=== PATIENT | female | born 1945 | race Caucasian/White ===

== ENCOUNTER 2016-12-15 23:58 | Inpatient (IN) | payer OTHER ==
[~2016-12-15] VITALS: Ht 157.5 cm; Wt 68.8 kg
[~2016-12-15 23:58] MED LIST: ACYC-251 PO; AMLO2.5T PO; CALCTAB7 PO; CHOL100027 PO; DSWCR15 TOP; FISHOIL PO; LORA-741 PO; MULTTAB PO
[2016-12-16] VITALS (11 sets, daily range): BP systolic 138–189; BP diastolic 70–96; PULSE 73–80; TEMP 36.8–37.4; O2SAT 92–98; Ht 157.5 cm; Wt 68.8 kg
[2016-12-16] MEDS ORDERED: AMLO-110 PO (00:43)
[2016-12-16] MEDS ORDERED: IBUP600T44 PO (00:45)
[2016-12-16] MEDS ORDERED: ATOR10TA88 PO (00:47)
[2016-12-16] MEDS ORDERED: COEN1CAP28 PO (00:49)
[2016-12-16] MEDS ORDERED: DEXT30TA7 PO (00:53)
[2016-12-16] MEDS ORDERED: RBTUDL5 PO (00:55)
[2016-12-16] MEDS ORDERED: CLR10 PO (00:58)
[2016-12-16 01:34] LABS: BASO % 0.4 %; BASO ABS # 0.03 K/uL (0-0.2); COMPLETE YES; EOS % 7.8 %; HEMATOCRIT 44.2 % (37-47); IG% 0.3 %; LYMPH % 24.8 %; LYMPH ABS # 1.74 K/uL (1.2-3.4); MEAN CELL VOLUME 89.7 fL (80-100); MEAN CORPUSCULAR HEMOGLOBIN 30.8 pg (25-34); MEAN CORPUSCULAR HGB CONC 34.4 g/dl (32-36); MEAN PLATELET VOLUME 9.5 fL (7.4-10.4); MONO % 12.3 %; NEUT % 54.4 %; PLATELET COUNT 178 K/uL (130-400); RED BLOOD COUNT 4.93 M/uL (4.2-5.4); WHITE BLOOD COUNT 7.02 K/uL (4.8-10.8)
--- NOTE | 2016-12-16 01:40 | EMERGENCY ROOM VISIT NOTE ---
History Report prepared by Mert: Tiffanie Hernandez Under the Supervision of: Dr. Deann Burt D.O. First contact with patient: 00:51 Chief Complaint: OTHER COMPLAINT Stated Complaint: NUMBNESS IN HANDS AND FACE History of Present Illness The patient is a 71 year old female who presents to the Emergency Room with complaints of constant numbness to the left side of her face into her hands for the past 9 hours. The patient has been experiencing flu-like symptoms for the past week. Two days ago she started taking Mucinex DM, Aleve, and Robitussin DM for her symptoms. She has been taking these medications daily for the past 2 days and states that they have been helping her cough. This evening around 4: 30pm she started to experience some numbness in her hands, left greater than right. She is also experiencing numbness in her lips and on the left side of her face. She states that her feet have felt heavy and she has felt off balance. The patient has chronic neck pain that is worse today. She denies feeling confused. She denies abdominal pain. She did get a flu shot. She reports a cough and a low-grade fever. 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 A total of 10 systems reviewed and were otherwise negative. Past Medical & Surgical Medical Problems: (1) Chronic kidney disease, stage 3 (moderate) (2) Hypertension Family History Non-pertinent due to advanced age. Social History Smoking Status: Never Smoker Alcohol Use: none Drug Use: none Marital Status: Housing Status: lives alone Occupation Status: retired Current/Historical Medications Scheduled Amlodipine (Norvasc), 5 MG PO DAILY Atorvastatin (Lipitor), 10 MG PO DAILY Calcium Carbonate-Vitamin D W/ (Caltrate 600 Plus), 1 TAB PO DAILY Cholecalciferol (Vitamin D 1000 Unit), 1,000 INTER.UNIT PO DAILY Coenzyme Q10 (Ubidecarenone) (Co Q10), 100 MG PO DAILY Fish Oil ([place]-3), 1,200 MG PO DAILY Multivitamins/Minerals (Mvi With Minerals), 1 TAB PO DAILY Scheduled PRN Dextromethorphan-Guaifenesin (Mucinex Dm), 1 TAB PO Q12 PRN for CONGESTION Guaifenesin (Robitussin), 20 ML PO Q12 PRN for Cough Ibuprofen (Motrin), 600 MG PO Q6H PRN for Pain Loratadine (Claritin), 10 MG PO DAILY PRN for ALLERGIC REACTION Lorazepam (Ativan), 0.5-1 MG PO QID PRN for Anxiety Allergies Coded Allergies: Erythromycin (Verified Adverse Reaction, Mild, GI UPSET, 03/31/14) Physical Exam Vital Signs Date Time Temp Pulse Resp B/P Pulse Ox O2 Delivery O2 Flow Rate FiO2 12/16/16 03:46 76 20 158/84 98 Room Air 12/16/16 02:01 68 18 175/89 95 Room Air 12/16/16 00:09 36.7 85 18 136/81 94 Room Air Physical Exam General: The patient is a 71-year-old female. HEENT: Head - normocephalic and atraumatic. Pupils are equal, round, and reactive to light. Extraocular eye muscles are intact and sclera are anicteric. Ears - bilaterally patent canals with noninjected tympanic membranes and no evidence of hemotympanum. Nose - moist nasal mucosa without discharge. Mouth - moist buccal mucosa. Oropharynx is nonerythematous and there is no tonsillar exudate or edema noted. Neck: Supple; no JVD, nuchal rigidity, cervical lymphadenopathy, or auscultated bruits. Heart: Regular rate and rhythm. There is a normal S1 and S2 with no murmurs, clicks, or gallops appreciated. Lungs: Clear to auscultation bilaterally with no wheezes, rales, or rhonchi. Abdomen: Soft, completely nontender, nondistended, with good bowel sounds. There are no palpable pulsatile masses or hepatosplenomegaly. There is no guarding, rigidity, or rebound noted. Extremities: No evidence of cyanosis, clubbing, or edema. There are easily palpable peripheral pulses. Neuro:The patient is awake and alert, oriented to day, time, and place. Muscle strength is 5/5 in all 4 extremities. The patient has equal director of social work strength and equal pedal push and pull. There are no cerebellar signs. Decreased sensation in the left cheek. Medical Decision & Procedures ER Provider Diagnostic Interpretation: 2-view chest x-ray as interpreted by myself reveals no acute pulmonary infiltrates or consolidation, no cardiomegaly. Radiology results as stated below per my review and the radiologist's interpretation: CT HEAD: Prior 05/26/2012 No evidence of acute intracranial abnormality. Mild volume loss and small vessel disease Partially visualized paranasal sinuses and mastoids are clear CT C SPINE: No evidence acute fracture or malalignment. Multilevel degenerative change. Disc osteophyte complexes from C3 to the C6. Moderate central canal stenoses at these levels. At C5-C6, severe right foraminal stenosis. Varying levels of mild to moderate foraminal stenoses at other levels. Heterogenous thyroid with irregular low-density areas. Likely similar to prior thyroid ultrasound 08/14/2012. Radiologist: Giovanni Birscoe MD. Laboratory Results 12/16/16 01:21 Red Blood Count 4.93, Mean Corpuscular Volume 89.7, Mean Corpuscular Hemoglobin 30.8, Mean Corpuscular Hemoglobin Concent 34.4, Mean Platelet Volume 9.5, Neutrophils (%) (Auto) 54.4, Lymphocytes (%) (Auto) 24.8, Monocytes (%) (Auto) 12.3, Eosinophils (%) (Auto) 7.8, Basophils (%) (Auto) 0.4, Neutrophils # (Auto ) 3.82, Lymphocytes # (Auto) 1.74, Monocytes # (Auto) 0.86, Eosinophils # (Auto ) 0.55, Basophils # (Auto) 0.03 12/16/16 01:21 Test 12/16/16 00:00 12/16/16 01:21 12/16/16 03:10 Influenza Type A Antigen Neg for Influ A (NEG) Influenza Type B Antigen Neg for Influ B (NEG) White Blood Count 7.02 K/uL (4.8-10.8) Red Blood Count 4.93 M/uL (4.2-5.4) Hemoglobin 15.2 g/dL (12.0-16.0) Hematocrit 44.2 % (37-47) Mean Corpuscular Volume 89.7 fL (80-100) Mean Corpuscular Hemoglobin 30.8 pg (25-34) Mean Corpuscular Hemoglobin Concent 34.4 g/dl (32-36) Platelet Count 178 K/uL (130-400) Mean Platelet Volume 9.5 fL (7.4-10.4) Neutrophils (%) (Auto) 54.4 % Lymphocytes (%) (Auto) 24.8 % Monocytes (%) (Auto) 12.3 % Eosinophils (%) (Auto) 7.8 % Basophils (%) (Auto) 0.4 % Neutrophils # (Auto) 3.82 K/uL (1.4-6.5) Lymphocytes # (Auto) 1.74 K/uL (1.2-3.4) Monocytes # (Auto) 0.86 K/uL (0.11-0.59) Eosinophils # (Auto) 0.55 K/uL (0-0.5) Basophils # (Auto) 0.03 K/uL (0-0.2) RDW Standard Deviation 44.7 fL (36.4-46.3) RDW Coefficient of Variation 13.8 % (11.5-14.5) Immature Granulocyte % (Auto) 0.3 % Immature Granulocyte # (Auto) 0.02 K/uL (0.00-0.02) Prothrombin Time 10.5 SECONDS (9.0-12.0) Prothromb Time International Ratio 1.0 (0.9-1.1) Anion Gap 11.0 mmol/L (3-11) Est Creatinine Clear Calc Drug Dose 32.9 ml/min Estimated GFR () 43.1 Estimated GFR (Non- 37.2 BUN/Creatinine Ratio 17.9 (10-20) Calcium Level 8.6 mg/dl (8.5-10.1) Magnesium Level 2.2 mg/dl (1.8-2.4) Total Bilirubin 0.5 mg/dl (0.2-1) Aspartate Amino Transf (AST/SGOT) 20 U/L (15-37) Alanine Aminotransferase (ALT/SGPT) 35 U/L (12-78) Alkaline Phosphatase 95 U/L (45-117) Total Protein 7.2 gm/dl (6.4-8.2) Albumin 4.0 gm/dl (3.4-5.0) Globulin 3.2 gm/dl (2.5-4.0) Albumin/Globulin Ratio 1.3 (0.9-2) Thyroid Stimulating Hormone (TSH) 4.510 uIu/ml (0.300-4.500) Free Thyroxine 1.07 ng/dl (0.80-1.60) Urine Color YELLOW Urine Appearance CLEAR (CLEAR) Urine pH 7.0 (4.5-7.5) Urine Specific [place] 1.007 (1.000-1.030) Urine Protein NEG (NEG) Urine Glucose (UA) NEG (NEG) Urine Ketones NEG (NEG) Urine Occult Blood NEG (NEG) Urine Nitrite NEG (NEG) Urine Bilirubin NEG (NEG) Urine Urobilinogen NEG (NEG) Urine Leukocyte Esterase TRACE (NEG) Urine WBC (Auto) 1-5 /hpf (0-5) Urine RBC (Auto) 0-4 /hpf (0-4) Urine Hyaline Casts (Auto) 0 /lpf (0-5) Urine Epithelial Cells (Auto) 10-20 /lpf (0-5) Urine Bacteria (Auto) NEG (NEG) Laboratory results per my review. Medications Administered Medications (Trade) Dose Ordered Sig/Rohan Route Start Time Stop Time Status Last Admin Dose Admin Sodium Chloride (Nss 500ml) 500 ml @ 999 mls/hr Q31M STAT IV 12/16/16 01:59 12/16/16 02:29 DC 12/16/16 01:59 999 MLS/HR Procedure Medications Administered: NSS 500 ml @ 999 mls/hr IV ECG Indication: other (stroke-like sx) Rate (beats per minute): 67 Rhythm: normal sinus Findings: no acute ischemic change, no ectopy ED Course 0051: Past medical records reviewed. The patient was evaluated in room B4B. A complete history and physical exam was performed. A twelve-lead EKG was obtained. An IV lock was initiated and labs were drawn as above. The patient went for a CT scan of the brain and cervical spine as described above. 0159: Laboratory studies revealed some mild renal insufficiency and I ordered NSS 500 ml @ 999 mls/hr IV. She had a chest x-ray because of her persisting cough. This was normal. 0350: I reassessed the patient at this time. She is complaining of more defined numbness on the left side of her face. She still has numbness in her hands. I discussed the results and treatment plan with the patient. I answered all pertaining questions that she had. She expressed understanding and verbalized agreement. 0408: I spoke with Dr. Barron. We discussed the patient's results and treatment plan. The patient will be evaluated by the [facility] for further management. Medical Decision The patient is a 71 year old female who presents to the ED with numbness. Differential diagnosis includes influenza, pneumonia, stroke, medication overdose, bronchitis, cervical spinal stenosis. Flu swab was negative, no leukocytosis, stable H&H, BUN 25, creatinine 1.4 which is elevated from her baseline of 1.2, glucose 109, TSH 4.5, LFTs were normal. This is 71-year-old female patient who presents to the emergency department with some questionable strokelike symptoms. The patient's symptoms started approximately 8 or 9 hours ago when she noticed that her feet seemed kind of full and that she had some numbness in both hands. She then noted some numbness to the left side of her face. The patient was not overly concerned about the numbness in her hands because she has had multiple previous episodes similar to this but the numbness to the left side of her face was concerning. The patient suffered a fall 1.5 years ago where she believe she may have injured her neck but had no formal workup at that time. She believed that the intermittent episodes of numbness in the hands could've been secondary to that injury. CT scan of the neck did show significant arthritic and osteophyte formation. The patient also describes a 3 day history of taking both Mucinex DM and Robitussin-DM. There was some thought that her symptoms may be secondary to medication side effects. However, the patient's symptoms were persistent for more than 8 hours and she had more defined numbness to the left side of her face while here in the ER. For this reason, the patient will will need a complete stroke workup including MRI/MRA of the brain and carotid duplex. I discussed the case with the [facility] and they will evaluate for further management. Consults Time Called: [phone] Consulting Physician: Dr. Barron Returned Call: [phone] Barron. We discussed the patient's results and treatment plan. The patient will be evaluated by the [facility] for further management. Impression Primary Impression: Left facial numbness Additional Impression: Bilateral hand numbness Scribe Attestation The scribe's documentation has been prepared under my direction and personally reviewed by me in its entirety. I confirm that the note above accurately reflects all work, treatment, procedures, and medical decision making performed by me. Departure Information Dispostion Being Evaluated By Hospitalist Referrals No Doctor, Assigned (PCP) Patient Instructions My [facility] Problem Qualifiers
[2016-12-16 01:57] LABS: BUN/CREATININE RATIO 17.9 (10-20); CALCIUM 8.6 mg/dl (8.5-10.1); CREATININE 1.4 mg/dl (0.60-1.20); POTASSIUM 3.8 mmol/L (3.5-5.1)
[2016-12-16] MEDS ORDERED: SODIUM CHLORIDE 0.9% 500ML 500 ML IV STA (01:59)
[2016-12-16 02:07] LABS: ALB/GLOB RATIO 1.3 (0.9-2); THYROID STIMULATING HORMONE 4.51 uIu/ml (0.300-4.500)
[2016-12-16 03:28] LABS: URINE APPEARANCE CLEAR (CLEAR); URINE BILIRUBIN NEG (NEG); URINE COLOR YELLOW; URINE NITRITE NEG (NEG); URINE SPECIFIC GRAVITY 1.007 (1.000-1.030); UROBILINOGEN NEG (NEG)
[2016-12-16 03:32] LABS: MANUAL MICROSCOPIC REQUIRED? NO; REVIEW REQ? NO
[2016-12-16 04:21] LABS: MAGNESIUM 2.2 mg/dl (1.8-2.4)
[2016-12-16] MEDS ORDERED: ASPIRIN 324 MG CHEW PO STA (05:44)
[2016-12-16] MEDS ORDERED: ASPIRIN 324 MG CHEW ONE (05:52)
[2016-12-16] MEDS ORDERED: ALBUT/IPRATROP 3MG/0.5MG NEB 3 ML VIAL INH STA (05:57)
[2016-12-16] MEDS ORDERED: TRAMADOL HCL 50 MG TAB PO PRN (06:00)
[2016-12-16] MEDS ORDERED: LORATADINE 10 MG TAB PO PRN (06:00)
[2016-12-16] MEDS ORDERED: HYDROmorphone INJ 1 MG/ML SYR IV PRN (06:00)
[2016-12-16] MEDS ORDERED: NITROGLYCERIN 0.4 MG SL PER TAB CHARGE SL PRN (06:00)
[2016-12-16] MEDS ORDERED: PHARMACIST DISCHARGE MED REC CONSULT PRN (06:00)
[2016-12-16] MEDS ORDERED: IV FLUIDS COMPLETED PRN (06:00)
[2016-12-16] MEDS ORDERED: ACETAMINOPHEN 325 MG TAB PO PRN (06:00)
[2016-12-16] MEDS ORDERED: LORAZEPAM 0.5 MG TAB PO PRN (06:00)
[2016-12-16] MEDS ORDERED: ALBUT/IPRATROP 3MG/0.5MG NEB 3 ML VIAL INH PRN (06:00)
[2016-12-16] MEDS ORDERED: ONDANSETRON INJ 2 MG/ML 2 ML VIAL IV PRN (06:00)
--- NOTE | 2016-12-16 06:30 | DIAGNOSTIC IMAGING REPORT ---
HEAD CT NONCONTRAST CT DOSE: 1007.39 mGy.cm HISTORY: Mental status change left facial numbness TECHNIQUE: Multiaxial CT images of the head were performed without the use of intravenous contrast. Comparison: 05/26/2012 Findings: The paranasal sinuses and mastoid air cells are clear. The calvarium and skull base are intact. The ventricles and sulci are within normal limits. There is no mass, hematoma, midline shift, or acute infarct. Impression: No acute intracranial abnormality. Electronically signed by: Mark Wu M.D. 12/16/2016 6:29 AM Dictated Date/Time: 12/16/2016 6:28 AM
--- NOTE | 2016-12-16 06:31 | DIAGNOSTIC IMAGING REPORT ---
CERVICAL SPINE CT CT DOSE: HISTORY: Pain. Neuropathy. bilateral arm numbness TECHNIQUE: Multiaxial CT images of the cervical spine were performed and reformatted in the sagittal and coronal plane without the use of contrast. COMPARISON: None. FINDINGS: No acute bony abnormality. Considerable degenerative intervertebral disc change at the entire cervical region. No evidence for an acute compression deformity. Moderate anterior and posterior osteophytic changes throughout. Moderate osteophytic narrowing of the bulk of the neuroforamina bilaterally. Prevertebral soft tissues are unremarkable. IMPRESSION: Considerable degenerative change. No acute abnormality. Electronically signed by: Mark Wu M.D. 12/16/2016 6:30 AM Dictated Date/Time: 12/16/2016 6:29 AM
--- NOTE | 2016-12-16 07:09 | DIAGNOSTIC IMAGING REPORT ---
CHEST 2 VIEWS ROUTINE CLINICAL HISTORY: cough dyspnea COMPARISON STUDY: No previous studies for comparison. FINDINGS: The bones soft tissues and hemidiaphragms are normal. The cardiomediastinal silhouette is normal. The lungs are clear. The pulmonary vasculature is normal. IMPRESSION: Negative chest. Electronically signed by: Mark Wu M.D. 12/16/2016 7:08 AM Dictated Date/Time: 12/16/2016 7:08 AM
--- NOTE | 2016-12-16 08:20 | HISTORY & PHYSICAL EXAMINATION ---
DATE OF ADMISSION: 12/16/2016 PRIMARY CARE PHYSICIAN: Dr. Rodriguez. CHIEF COMPLAINT: Numbness on the left side of the face around the mouth, worsening numbness of the upper extremities. HISTORY OF PRESENT ILLNESS: Medical history significant for hypertension, hyperlipidemia, anxiety. Patient suffering from nasal congestion, dry cough symptoms the last few days. No fever, no chills. Taking [id number] decongestants/cough meds. Yesterday the patient noted increased numbness on the left side of the face and around the mouth, worsening of chronic numbness on both hands, had trouble writing. (Patient is left handed.) No chest pain, usual shortness of breath "because I don't exercise." No fevers, no headaches. MEDICAL HISTORY: As above. SURGERIES: Cataract surgery, tonsillectomy, adenectomy. HOME MEDICATIONS: Include amlodipine, Lipitor, Caltrate, vitamin D, Colace, Mucinex, omega, Robitussin, ibuprofen, Ativan, Claritin, multivitamins. ALLERGIES: ERYTHROMYCIN. FAMILY HISTORY: Stroke, emphysema. PERSONAL AND SOCIAL HISTORY: Nonsmoker, no chronic ETOH intake. Retired secretary administrative assistant. Lives alone. REVIEW OF SYSTEMS: As per HPI, all other ROS negative. PHYSICAL EXAMINATION: VITAL SIGNS: Blood pressure was noted to be 136/81 later SBP 170s, pulse rate 68, respiratory rate 18, T 37, O2 sats 94 on room air. GENERAL: Noted to becomfortable, slightly anxious, no respiratory distress. SKIN: Normal color. HEENT: [place] palpebral conjunctivae, dry mucosa. NECK: No JVD. supple CHEST: Clear to auscultation. HEART: Regular rate and rhythm. ABDOMEN: Soft. EXTREMITIES: no edema, no tenderness noted. NEUROLOGIC: no gross focality, gait and stance not assessed. LABORATORIES: Hemoglobin was noted to be 15, white cell count 7, platelets 178. Sodium 140, potassium 3.8, chloride 107, creatinine 1.4, glucose 100. CT head, no acute pathology. CT neck, worsening of some neck pain. Consider degenerative change. Chest x-ray showed no acute pathology. ASSESSMENT: 1. Numbness on the left face, mouth and upper extremities ro CVA 2. Hypertensive urgency secondary to above. 3. Hyperlipidemia on statin therapy. 4. Acute renal failure. 5. viral URTI, no sepsis PLAN: Observation PCU, neuro checks ASA for now for stroke prevention until stroke ruled out. Further mx pending MRI/MRA results. Permissive hypertension until stroke ruled out. Px requesting for [facility] Neurology services should the need arise Monitor creatinine response to IV fluids. DVT prophylaxis. Heparin subQ. Full code. MTDD
[2016-12-16 08:26] LABS: PROTHROMBIN TIME (PATIENT) 10.5 SECONDS (9.0-12.0)
[2016-12-16] MEDS ORDERED: SODIUM CHLOR 0.45% + 20MEQ KCL 1,000 ML IV ONE (08:30)
[2016-12-16] MEDS ORDERED: CEROVITE ADV FORMULA TAB PO SCH (09:00)
[2016-12-16] MEDS ORDERED: ATORVASTATIN 10 MG TAB PO SCH (09:00)
[2016-12-16] MEDS: GUAIFENESIN 600 MG TABCR PO SCH ×2 (10:06→21:41)
--- NOTE | 2016-12-16 11:41 | DIAGNOSTIC IMAGING REPORT ---
Brain MRI WITHOUT CONTRAST HISTORY: Facial numbness Stroke TECHNIQUE: Multiplanar multisequence MRI of the brain was performed without the use of contrast. COMPARISON STUDY: CT study same date FINDINGS: Small acute infarct lateral aspect right thalamus. Signal characteristics of the cerebellar as well as cerebral hemispheres otherwise are unremarkable. The ventricular system is midline. Minimal chronic small vessel change. IMPRESSION: 1. Small acute/subacute infarct lateral right thalamus. 2. Minimal chronic small vessel change. Electronically signed by: Mark Wu M.D. 12/16/2016 11:40 AM Dictated Date/Time: 12/16/2016 11:38 AM
--- NOTE | 2016-12-16 11:54 | DIAGNOSTIC IMAGING REPORT ---
Brain MRA HISTORY: Stroke Stroke - Attention to [place] TECHNIQUE: 3-D [id number] MRA of the brain was performed without contrast. COMPARISON STUDY: None. FINDINGS: Visualized intracranial internal carotid arteries, distal vertebral arteries, and basilar artery are widely patent. There is no significant stenosis, occlusion, or aneurysm seen within the bilateral ACAs, MCAs, or drop hammer setter up. IMPRESSION: No significant stenosis, occlusion, or aneurysm within the [place]. Electronically signed by: Mark Wu M.D. 12/16/2016 11:52 AM Dictated Date/Time: 12/16/2016 11:51 AM
[2016-12-16] MEDS ORDERED: CLOPIDOGREL BISULFATE 75 MG TAB PO ONE (12:02)
--- NOTE | 2016-12-16 13:04 | Progress Note ---
Medicine Progress Note Date & Time of Visit: Dec 16, 2016 at 12:33. Subjective Pt was seen and examined Sitting in bed comfortable just finished eating lunch while i was taking to her daughter and son just entered her room Pt said she feels ok except for the coughing that she has she still feels some numbness around the left facial area and upper extremities she said that she feels a little dizzy Denies any slurred speech, blurry vision, palpitation and SOB Objective Last 8 Hrs Date Time Temp Pulse Resp B/P Pulse Ox O2 Delivery O2 Flow Rate FiO2 12/16/16 12:00 95 Room Air 12/16/16 08:30 80 18 169/74 94 Room Air 12/16/16 08:00 98 Room Air 12/16/16 07:00 98 Room Air 12/16/16 06:56 36.8 76 18 189/96 12/16/16 05:55 69 20 179/86 98 Room Air Physical Exam: General- no acute distress Head- atraumatic Eyes- PERRL, EOMI ENT- oropharynx clear Neck- supple, no JVD Lungs- No crackles Heart- no murmur Abdomen- normal bowel sounds, soft Extremities- no calf tenderness Neuro- alert, oriented x 3; PERRL, EOMI; no facial palsy; no dysarthria; motor 5 /5 bilaterally, finger to nose intact bilaterally Skin- warm & dry Laboratory Results: Last 24 Hours Test 12/16/16 00:00 12/16/16 01:21 12/16/16 03:10 12/16/16 12:19 Influenza Type A Antigen Neg for Influ A Influenza Type B Antigen Neg for Influ B White Blood Count 7.02 K/uL Red Blood Count 4.93 M/uL Hemoglobin 15.2 g/dL Hematocrit 44.2 % Mean Corpuscular Volume 89.7 fL Mean Corpuscular Hemoglobin 30.8 pg Mean Corpuscular Hemoglobin Concent 34.4 g/dl Platelet Count 178 K/uL Mean Platelet Volume 9.5 fL Neutrophils (%) (Auto) 54.4 % Lymphocytes (%) (Auto) 24.8 % Monocytes (%) (Auto) 12.3 % Eosinophils (%) (Auto) 7.8 % Basophils (%) (Auto) 0.4 % Neutrophils # (Auto) 3.82 K/uL Lymphocytes # (Auto) 1.74 K/uL Monocytes # (Auto) 0.86 K/uL Eosinophils # (Auto) 0.55 K/uL Basophils # (Auto) 0.03 K/uL RDW Standard Deviation 44.7 fL RDW Coefficient of Variation 13.8 % Immature Granulocyte % (Auto) 0.3 % Immature Granulocyte # (Auto) 0.02 K/uL Prothrombin Time 10.5 SECONDS Prothromb Time International Ratio 1.0 Sodium Level 143 mmol/L Potassium Level 3.8 mmol/L Chloride Level 107 mmol/L Carbon Dioxide Level 25 mmol/L Anion Gap 11.0 mmol/L Blood Urea Nitrogen 25 mg/dl Creatinine 1.40 mg/dl Est Creatinine Clear Calc Drug Dose 32.9 ml/min Estimated GFR () 43.1 Estimated GFR (Non- 37.2 BUN/Creatinine Ratio 17.9 Random Glucose 109 mg/dl Calcium Level 8.6 mg/dl Magnesium Level 2.2 mg/dl Total Bilirubin 0.5 mg/dl Aspartate Amino Transf (AST/SGOT) 20 U/L Alanine Aminotransferase (ALT/SGPT) 35 U/L Alkaline Phosphatase 95 U/L Total Protein 7.2 gm/dl Albumin 4.0 gm/dl Globulin 3.2 gm/dl Albumin/Globulin Ratio 1.3 Thyroid Stimulating Hormone (TSH) 4.510 uIu/ml Free Thyroxine 1.07 ng/dl Urine Color YELLOW Urine Appearance CLEAR Urine pH 7.0 Urine Specific [place] 1.007 Urine Protein NEG Urine Glucose (UA) NEG Urine Ketones NEG Urine Occult Blood NEG Urine Nitrite NEG Urine Bilirubin NEG Urine Urobilinogen NEG Urine Leukocyte Esterase TRACE Urine WBC (Auto) 1-5 /hpf Urine RBC (Auto) 0-4 /hpf Urine Hyaline Casts (Auto) 0 /lpf Urine Epithelial Cells (Auto) 10-20 /lpf Urine Bacteria (Auto) NEG Assessment & Plan Left sided facial numbness/ mouth/ upper extremities CT head on admission was negative MRI of the brain showed small acute/subacute infarct lateral right thalamus MRA of the brain showed no significant stenosis, occlusion, or aneurysm within the [place]. Continue asa and statin Check lipid panel in am Plavix was added, 1st dose given today Carotid u/s of the neck and echo pending Continue neuro check Keep BP elevated to allow permissive HTN Neurology consult PT OT Hypertensive hold BP med for now to allow permissive HTN Will keep BP while in the hospital btw 150/80 to 175/95 If SBP starts to increase above 175, will consider to resume amlodipine Acute renal failure Continue IVF monitor BMP Hyperlipidemia Continue statin therapy. Cough Continue guaifenesin DVT px On heparin subq CODE STATUS FULL CODE Consultants: neurology Current Inpatient Medications: Current Inpatient Medications Medications (Trade) Dose Ordered Sig/Rohan Route Start Time Stop Time Status Last Admin Dose Admin Miscellaneous (Iv Fluids Completed) 1 ea PRN PRN N/A 12/16/16 06:00 12/16/17 05:59 Heparin Sodium (Porcine) (Heparin Sq 5000 Unit/0.5ml) 5,000 unit Q8 SQ 12/16/16 14:00 01/15/17 13:59 Acetaminophen (Tylenol Tab) 650 mg Q4H PRN PO 12/16/16 06:00 01/15/17 05:59 Nitroglycerin (Nitrostat Tab) 0.4 mg UD PRN SL 12/16/16 06:00 01/15/17 05:59 Miscellaneous Information (Pharmacist Discharge Med Rec Consult) 1 ea UD PRN N/A 12/16/16 06:00 01/15/17 05:59 Aspirin (Ecotrin Tab) 325 mg QAM PO 12/17/16 09:00 01/16/17 08:59 Hydromorphone HCl (Dilaudid Inj) 0.5 mg Q3H PRN IV 12/16/16 06:00 12/30/16 05:59 Ondansetron HCl (Zofran Inj) 4 mg Q6H PRN IV 12/16/16 06:00 01/15/17 05:59 Tramadol HCl (Ultram Tab) 25 mg Q6H PRN PO 12/16/16 06:00 01/15/17 05:59 Guaifenesin 600 mg 600 mg Q12 PO 12/16/16 09:00 01/15/17 08:59 Potassium Chloride/Sodium Chloride (1/2 Nss + 20meq KCl 1000ml) 1,000 ml @ 75 mls/hr [id number] ONCE IV 12/16/16 08:30 12/16/16 21:49 12/16/16 10:02 75 MLS/HR Albuterol/ Ipratropium (Duoneb) 3 ml Q2H PRN INH 12/16/16 06:00 01/15/17 05:59 Atorvastatin Calcium (Lipitor Tab) 10 mg DAILY PO 12/16/16 09:00 01/15/17 08:59 Loratadine (Claritin Tab) 10 mg DAILY PRN PO 12/16/16 06:00 01/15/17 05:59 Lorazepam (Ativan Tab) 0.5 mg QID PRN PO 12/16/16 06:00 01/15/17 05:59 Multivitamins/ Minerals (Multivitamin W/ Minerals Tab) 1 tab DAILY PO 12/16/16 09:00 01/15/17 08:59 Clopidogrel Bisulfate (plAVix TAB) 75 mg QAM PO 12/17/16 09:00 01/16/17 08:59
[2016-12-16] MEDS: HEPARIN SOD 5000 UNIT/0.5 ML CARP SQ SCH ×2 (14:11→21:42)
--- NOTE | 2016-12-16 14:12 | Neurology Consultation ---
Neurology Consultation Date of Consultation: Dec 16, 2016. Attending Physician: Franklin Greene M.D. Primary Care Physician: Tristen Rodriguez III, M.D. Reason for Consultation: Consultation for stroke History of Present Illness Source: patient, hospital records This is a 71-year-old left-handed female who presents for the above evaluation. Patient had acute onset of symptoms yesterday afternoon. The patient has had some viral respiratory illness for the last couple weeks. She does admit that she was doubling up on 12 hour Mucinex DM and Robitussin-DM to try to control her symptoms. Yesterday afternoon she had onset of numbness of the left lower face and left hand. Also noted a change in her handwriting. Hand felt weak. She denied any leg symptoms other than she felt like she was walking on clown shoes. Denies any changes to her speech or cognition. Denies any trouble eating or swallowing. No changes in her vision. No loss of vision. She does report some intermittent episodes of sometimes feeling of heart palpitations. No chest pain or shortness of breath. No pain or headaches. patient denies any antiplatelet use at time of event. In addition the patient reports that she did start using a weight loss pill in the last week Hospital workup has been reviewed. MRI of the brain report and images reviewed by myself. The patient does have a small subacute right lateral thalamic ischemic stroke. MRA of the head is unremarkable Creatinine noted to be 1.4 Past Medical/Surgical History Medical Problems: (1) Bilateral hand numbness Status: Acute (2) Left facial numbness Status: Acute CKD, hypertension, dyslipidemia Family History Family history father with emphysema and a mother who had a stroke when she was 82 Social History Patient is normally independent in her activities of daily living. She goes to the gym at least several times per week. No tobacco use. Drinks 1-2 drinks per month. No illegal drug use. The patient has been using weight loss pill in the last week. Other supplement use includes vitamins and fish oil. Smoking Status: Never smoker Drug Use: none Marital Status: Housing Status: lives alone Occupation Status: retired Allergies Coded Allergies: Erythromycin (Verified Adverse Reaction, Mild, GI UPSET, 03/31/14) Current Inpatient Medications Current Inpatient Medications Medications (Trade) Dose Ordered Sig/Rohan Route Start Time Stop Time Status Last Admin Dose Admin Miscellaneous (Iv Fluids Completed) 1 ea PRN PRN N/A 12/16/16 06:00 12/16/17 05:59 Heparin Sodium (Porcine) (Heparin Sq 5000 Unit/0.5ml) 5,000 unit Q8 SQ 12/16/16 14:00 01/15/17 13:59 Acetaminophen (Tylenol Tab) 650 mg Q4H PRN PO 12/16/16 06:00 01/15/17 05:59 Nitroglycerin (Nitrostat Tab) 0.4 mg UD PRN SL 12/16/16 06:00 01/15/17 05:59 Miscellaneous Information (Pharmacist Discharge Med Rec Consult) 1 ea UD PRN N/A 12/16/16 06:00 01/15/17 05:59 Aspirin (Ecotrin Tab) 325 mg QAM PO 12/17/16 09:00 01/16/17 08:59 Hydromorphone HCl (Dilaudid Inj) 0.5 mg Q3H PRN IV 12/16/16 06:00 12/30/16 05:59 Ondansetron HCl (Zofran Inj) 4 mg Q6H PRN IV 12/16/16 06:00 01/15/17 05:59 Tramadol HCl (Ultram Tab) 25 mg Q6H PRN PO 12/16/16 06:00 01/15/17 05:59 Guaifenesin 600 mg 600 mg Q12 PO 12/16/16 09:00 01/15/17 08:59 Potassium Chloride/Sodium Chloride (1/2 Nss + 20meq KCl 1000ml) 1,000 ml @ 75 mls/hr [id number] ONCE IV 12/16/16 08:30 12/16/16 21:49 12/16/16 10:02 75 MLS/HR Albuterol/ Ipratropium (Duoneb) 3 ml Q2H PRN INH 12/16/16 06:00 01/15/17 05:59 Atorvastatin Calcium (Lipitor Tab) 10 mg DAILY PO 12/16/16 09:00 01/15/17 08:59 Loratadine (Claritin Tab) 10 mg DAILY PRN PO 12/16/16 06:00 01/15/17 05:59 Lorazepam (Ativan Tab) 0.5 mg QID PRN PO 12/16/16 06:00 01/15/17 05:59 Multivitamins/ Minerals (Multivitamin W/ Minerals Tab) 1 tab DAILY PO 12/16/16 09:00 01/15/17 08:59 Clopidogrel Bisulfate (plAVix TAB) 75 mg QAM PO 12/17/16 09:00 01/16/17 08:59 Review of Systems Complete review of systems otherwise negative except for the above noted in history of present illness. Physical Exam Vital Signs (Past 24 Hrs): Date Time Temp Pulse Resp B/P Pulse Ox O2 Delivery O2 Flow Rate FiO2 12/16/16 12:00 95 Room Air 12/16/16 08:30 80 18 169/74 94 Room Air 12/16/16 08:00 98 Room Air 12/16/16 07:00 98 Room Air 12/16/16 06:56 36.8 76 18 189/96 12/16/16 05:55 69 20 179/86 98 Room Air 12/16/16 03:46 76 20 158/84 98 Room Air 12/16/16 02:01 68 18 175/89 95 Room Air 12/16/16 00:09 36.7 85 18 136/81 94 Room Air Gen.: Patient is alert and sitting in bed, in no acute distress. HEENT: Normocephalic /atraumatic, no scleral icterus Heart: Regular rate and rhythm Extremities: No gross deformities or rashes noted Neurological examination: Mental status: Patient is alert and oriented x3. Attention and concentration normal for the situation. Good fund of knowledge. Able to give her own history. Speech is fluent without any dysarthria or aphasia noted Cranial nerve: Visual pratt intact. Funduscopic examination was unremarkable. No papilledema. Pupils equally round and reactive to light. Extraocular muscles intact without nystagmus. No facial asymmetry noted. Decreased sensation on the left lower face. Tongue is midline. Good palatal elevation. Good shoulder shrug bilaterally. Hearing grossly intact to voice. Strength: 5/5 both proximal and distally in all extremities with the exception of left hand strength 4+/5 with a left upper extremity pronator drift. Tone is normal. Sensation: Grossly intact to light touch in all extremities. Deep tendon reflexes: +1 in bilateral biceps, brachioradialis and patellar. Coordination: Patient had good finger to nose without any significant dysmetria Station within the bed was normal Laboratory Results Past 24 Hours: 12/16/16 01:21 Red Blood Count 4.93, Mean Corpuscular Volume 89.7, Mean Corpuscular Hemoglobin 30.8, Mean Corpuscular Hemoglobin Concent 34.4, Mean Platelet Volume 9.5, Neutrophils (%) (Auto) 54.4, Lymphocytes (%) (Auto) 24.8, Monocytes (%) (Auto) 12.3, Eosinophils (%) (Auto) 7.8, Basophils (%) (Auto) 0.4, Neutrophils # (Auto ) 3.82, Lymphocytes # (Auto) 1.74, Monocytes # (Auto) 0.86, Eosinophils # (Auto ) 0.55, Basophils # (Auto) 0.03 12/16/16 01:21 Test 12/16/16 00:00 12/16/16 01:21 12/16/16 03:10 12/16/16 12:19 Influenza Type A Antigen Neg for Influ A (NEG) Influenza Type B Antigen Neg for Influ B (NEG) White Blood Count 7.02 K/uL (4.8-10.8) Red Blood Count 4.93 M/uL (4.2-5.4) Hemoglobin 15.2 g/dL (12.0-16.0) Hematocrit 44.2 % (37-47) Mean Corpuscular Volume 89.7 fL (80-100) Mean Corpuscular Hemoglobin 30.8 pg (25-34) Mean Corpuscular Hemoglobin Concent 34.4 g/dl (32-36) Platelet Count 178 K/uL (130-400) Mean Platelet Volume 9.5 fL (7.4-10.4) Neutrophils (%) (Auto) 54.4 % Lymphocytes (%) (Auto) 24.8 % Monocytes (%) (Auto) 12.3 % Eosinophils (%) (Auto) 7.8 % Basophils (%) (Auto) 0.4 % Neutrophils # (Auto) 3.82 K/uL (1.4-6.5) Lymphocytes # (Auto) 1.74 K/uL (1.2-3.4) Monocytes # (Auto) 0.86 K/uL (0.11-0.59) Eosinophils # (Auto) 0.55 K/uL (0-0.5) Basophils # (Auto) 0.03 K/uL (0-0.2) RDW Standard Deviation 44.7 fL (36.4-46.3) RDW Coefficient of Variation 13.8 % (11.5-14.5) Immature Granulocyte % (Auto) 0.3 % Immature Granulocyte # (Auto) 0.02 K/uL (0.00-0.02) Prothrombin Time 10.5 SECONDS (9.0-12.0) Prothromb Time International Ratio 1.0 (0.9-1.1) Anion Gap 11.0 mmol/L (3-11) Est Creatinine Clear Calc Drug Dose 32.9 ml/min Estimated GFR () 43.1 Estimated GFR (Non- 37.2 BUN/Creatinine Ratio 17.9 (10-20) Calcium Level 8.6 mg/dl (8.5-10.1) Magnesium Level 2.2 mg/dl (1.8-2.4) Total Bilirubin 0.5 mg/dl (0.2-1) Aspartate Amino Transf (AST/SGOT) 20 U/L (15-37) Alanine Aminotransferase (ALT/SGPT) 35 U/L (12-78) Alkaline Phosphatase 95 U/L (45-117) Total Protein 7.2 gm/dl (6.4-8.2) Albumin 4.0 gm/dl (3.4-5.0) Globulin 3.2 gm/dl (2.5-4.0) Albumin/Globulin Ratio 1.3 (0.9-2) Thyroid Stimulating Hormone (TSH) 4.510 uIu/ml (0.300-4.500) Free Thyroxine 1.07 ng/dl (0.80-1.60) Urine Color YELLOW Urine Appearance CLEAR (CLEAR) Urine pH 7.0 (4.5-7.5) Urine Specific [place] 1.007 (1.000-1.030) Urine Protein NEG (NEG) Urine Glucose (UA) NEG (NEG) Urine Ketones NEG (NEG) Urine Occult Blood NEG (NEG) Urine Nitrite NEG (NEG) Urine Bilirubin NEG (NEG) Urine Urobilinogen NEG (NEG) Urine Leukocyte Esterase TRACE (NEG) Urine WBC (Auto) 1-5 /hpf (0-5) Urine RBC (Auto) 0-4 /hpf (0-4) Urine Hyaline Casts (Auto) 0 /lpf (0-5) Urine Epithelial Cells (Auto) 10-20 /lpf (0-5) Urine Bacteria (Auto) NEG (NEG) Imaging As reviewed in history of present illness Impression This is a 71-year-old female with a subacute right thalamic ischemic stroke. Appears to be small vessel ischemic etiology based off of MRI imaging, but cannot rule out a small embolic events. Known stroke risk factors include hypertension and dyslipidemia. In addition patient was taking a combination of Mucinex DM, Robitussin-DM and a weight loss pill that also could've contributed to her stroke. Residual neurological deficits include left facial numbness and left upper extremity weakness. Plan Instructed the patient to avoid any cold medications that contains pseudoephedrine. Also warned her against taking multiple cold medications that make and maintain the same medications. Instructed her to avoid using weight loss supplements as some of these weight lost stimulants can contribute to hypertension, heart attacks, and strokes. Recommend obtaining an MRA of the neck to evaluate evaluate for stroke etiology and to rule out critical stenosis. Recommend starting aspirin 81 mg daily for secondary stroke prevention. If patient has any signs of large vessel atherosclerotic disease on vessel imaging, would then recommend Plavix 75 mg daily instead. I have ordered an echocardiogram to evaluate for cardiac embolic sources for stroke. Follow-up echocardiogram results. Follow-up hemoglobin A1c and lipid profile for modifiable stroke risk factors Follow-up PT/OT evaluations. Patient does not appear to have any speech needs at this time. Blood pressure recommendations while in hospital 175/95-150/80 Avoid hypotension and dehydration as this can extend a stroke Stroke risk factor modifications and recommendations: Blood pressure recommendations for the first month post hospital discharge 150/ 90-130/80, and after that blood pressure recommendations 130/80-110/70 Total cholesterol goal 100- 200 and LDL goal less than 100 Hemoglobin A1c goal less than 7 Encourage cardiovascular exercise at least 3 times a week for 30 minutes. No specific activity restrictions. Follow-up in neurology clinic in 1 month for post stroke hospital follow-up. I have asked our schedulers to call the patient in a couple days to set up this appointment. If no a-fib seen in hospital, recommend Holter monitor as an out patient to rule out a-fib since patient reports heart palpitations, and if she did have a- fib, this would change medical management. Patient had some concerns about tremors. Reassured the patient that I did not see anything that looked like Parkinson's. If there is any questions or concerns, feel free to call/page me.
[2016-12-16] MEDS ORDERED: NURSING VERBAL MED ORDER ONE (14:30)
[2016-12-16] MEDS ORDERED: PRAVASTATIN SOD 40 MG TAB PO SCH (21:00)
[2016-12-17] VITALS (9 sets, daily range): BP systolic 163–197; BP diastolic 79–94; PULSE 64–74; TEMP 36.4–36.9; O2SAT 94–98
[2016-12-17 05:44] LABS: BASO % 0.8 %; BASO ABS # 0.05 K/uL (0-0.2); COMPLETE YES; EOS % 6.6 %; HEMATOCRIT 44.9 % (37-47); IG% 0.2 %; MEAN CELL VOLUME 90.3 fL (80-100); MEAN CORPUSCULAR HEMOGLOBIN 30.4 pg (25-34); MEAN CORPUSCULAR HGB CONC 33.6 g/dl (32-36); MEAN PLATELET VOLUME 9.8 fL (7.4-10.4); MONO % 8.1 %; NEUT % 57.3 %; PLATELET COUNT 184 K/uL (130-400); RED BLOOD COUNT 4.97 M/uL (4.2-5.4); WHITE BLOOD COUNT 6.66 K/uL (4.8-10.8)
[2016-12-17] MEDS: HEPARIN SOD 5000 UNIT/0.5 ML CARP SQ SCH ×2 (05:51→15:35)
[2016-12-17 06:11] LABS: BUN/CREATININE RATIO 15.4 (10-20); CALCIUM 8.1 mg/dl (8.5-10.1); CREATININE 1.1 mg/dl (0.60-1.20); POTASSIUM 3.9 mmol/L (3.5-5.1)
[2016-12-17 06:29] LABS: CHOLESTEROL/HDL RATIO 2.8
[2016-12-17 07:30] LABS: ESTIMATED AVERAGE GLUCOSE 126 mg/dl; HA1C FLAG Normal (Normal)
[2016-12-17] MEDS: GUAIFENESIN 600 MG TABCR PO SCH (08:04)
--- NOTE | 2016-12-17 08:40 | ECHOCARDIOGRAM REPORT ---
*NOTICE TO RECEIVING [employer] This information is strictly Confidential and protected under [place] law. [place] law prohibits you from making any further disclosure of this information unless further disclosure is expressly permitted by the written consent of the person to whom it pertains or is authorized by law. A general authorization for the release of medical or other information is not sufficient for this purpose. Hospital accepts no responsibility if the information is made available to any other person, INCLUDING THE PATIENT. Interpretation Summary * Name: TOMMY GUADALUPE Study Date: 12/16/2016 12:48 PM BP: 169/76 mmHg * Patient Location: .2T\S\S229\S\1 HR: 81 * : 1945 (M/d/yyy) Gender: Female Height: 62 in * Age: 71 yrs Ethnicity: [place] Weight: 151 lb * Ordering Physician: Clarisa Pompa * Referring Physician: Self, Referred * Performed By: Pina Fox, [facility] * * Reason For Study: ACUTE STROKE * BSA: 1.7 m2 * -- Conclusions -- * Normal LV chamber size with mild concentric LVH. * Normal LV systolic function, EF 60-65%. * No segmental left ventricular wall motion abnormalities are noted. * Grade I diastolic dysfunction. * No significant valvular pathology. * The interatrial septum is intact with no evidence for an atrial septal defect. * Injection of contrast documented no interatrial shunt. Procedure Details * A complete two-dimensional transthoracic echocardiogram was performed (2D, M-mode, Doppler and color flow Doppler). * A saline contrast injection was performed to assess for cardiac shunting. * The injection was performed through an intravenous line in the right arm. * The attending nurse who injected the saline contrast was JENNIFER BLAKE RN. * A total of 20 cc of agitated saline was given. Left Ventricle * The left ventricle is normal in size. * There is mild concentric left ventricular hypertrophy. * Ejection Fraction = 60-65%. * Left ventricular systolic function is normal. * No segmental left ventricular wall motion abnormalities are noted. * The left ventricular wall motion is normal. Right Ventricle * The right ventricular cavity size is normal (basal dimension <4.2 cm in right ventricular apical 4-chamber view). * The right ventricular systolic function is normal as assessed by tricuspid annular plane systolic excursion (TAPSE) (normal >1.5 cm). Atria * The left atrial size is normal. * Right atrial size is normal. * The interatrial septum is intact with no evidence for an atrial septal defect. * Injection of contrast documented no interatrial shunt. Mitral Valve * The mitral valve is normal in structure and function. Tricuspid Valve * The tricuspid valve is normal in structure and function. Aortic Valve * The aortic valve is normal in structure and function. Pulmonic Valve * The pulmonary valve is not well seen, but the Doppler examination is normal without significant regurgitation or stenosis. Great Vessels * The aortic root is normal size. Pericardium/Pleural * There is no pericardial effusion. Left Ventricular Diastolic Function * Grade I diastolic dysfunction, (abnormal relaxation pattern). MMode 2D Measurements and Calculations IVSd 1.8 cm IVSs 2.1 cm LVIDd 3.2 cm LVIDs 1.9 cm LVPWd 1.2 cm LVPWs 1.5 cm IVS/LVPW 1.5 FS 41.1 % EDV(Teich) 41.6 ml ESV(Teich) 11.1 ml EF(Teich) 73.3 % EDV(cubed) 33.4 ml ESV(cubed) 6.8 ml EF(cubed) 79.6 % % IVS thick 14.1 % % LVPW thick 16.8 % LV mass(C)d 180.4 grams LV mass(C)dI 106.3 grams/m\S\2 LV mass(C)s 128.6 grams LV mass(C)sI 75.8 grams/m\S\2 SV(Teich) 30.5 ml SI(Teich) 18.0 ml/m\S\2 SV(cubed) 26.6 ml SI(cubed) 15.7 ml/m\S\2 Ao root diam 3.6 cm Ao root area 10.0 cm\S\2 LA dimension 2.9 cm LA/Ao 0.81 LVOT diam 2.0 cm LVOT area 3.0 cm\S\2 LVAd ap4 28.0 cm\S\2 LVLd ap4 6.9 cm EDV(MOD-sp4) 92.4 ml EDV(sp4-el) 96.0 ml LVAs ap4 15.8 cm\S\2 LVLs ap4 5.4 cm ESV(MOD-sp4) 39.7 ml ESV(sp4-el) 39.5 ml EF(MOD-sp4) 57.0 % EF(sp4-el) 58.9 % LVAd ap2 28.3 cm\S\2 LVLd ap2 7.5 cm EDV(MOD-sp2) 87.6 ml EDV(sp2-el) 91.2 ml LVAs ap2 13.4 cm\S\2 LVLs ap2 5.2 cm ESV(MOD-sp2) 28.9 ml ESV(sp2-el) 29.4 ml EF(MOD-sp2) 67.1 % EF(sp2-el) 67.8 % LVLd %diff 7.4 % EDV(MOD-bp) 92.7 ml LVLs %diff -2.75 % ESV(MOD-bp) 33.4 ml EF(MOD-bp) 63.9 % SV(MOD-sp4) 52.7 ml SI(MOD-sp4) 31.1 ml/m\S\2 SV(MOD-sp2) 58.8 ml SI(MOD-sp2) 34.6 ml/m\S\2 SV(MOD-bp) 59.3 ml SI(MOD-bp) 34.9 ml/m\S\2 SV(sp4-el) 56.6 ml SI(sp4-el) 33.4 ml/m\S\2 SV(sp2-el) 61.8 ml SI(sp2-el) 36.5 ml/m\S\2 Doppler Measurements and Calculations MV E max seth 92.2 cm/sec MV A max seth 108.2 cm/sec MV E/A 0.85 MV P1/2t max seth 100.8 cm/sec MV P1/2t 85.2 msec MVA(P1/2t) 2.6 cm\S\2 MV dec slope 346.8 cm/sec\S\2 MV dec time 0.16 sec Ao V2 max 140.3 cm/sec Ao max PG 7.9 mmHg Ao max PG (full) 4.7 mmHg BA(V,A) 1.9 cm\S\2 BA(V,D) 1.9 cm\S\2 LV V1 max PG 3.2 mmHg LV V1 max 89.7 cm/sec PA V2 max 108.6 cm/sec PA max PG 4.7 mmHg
[2016-12-17] MEDS ORDERED: ASPIRIN 325 MG ECTAB PO SCH (09:00)
[2016-12-17] MEDS ORDERED: AMLODIPINE BESYLATE 5 MG TAB PO SCH (09:00)
[2016-12-17] MEDS ORDERED: CLOPIDOGREL BISULFATE 75 MG TAB PO SCH (09:00)
[2016-12-17] MEDS ORDERED: MULTIVITAMIN TAB PO SCH (09:00)
--- NOTE | 2016-12-17 09:33 | DIAGNOSTIC IMAGING REPORT ---
CAROTID ARTERY ULTRASOUND CLINICAL HISTORY: Small acute/subacute infarct lateral right thalamus. COMPARISON STUDY: None. TECHNIQUE: Real-time, grayscale, and color Doppler sonography of the carotid and vertebral arteries was performed. Images were viewed in the transverse and longitudinal planes. FINDINGS: There is mild atherosclerotic plaque. Velocity measurements are listed below. COMMON CAROTID PEAK SYSTOLIC VELOCITY (CM/S): RIGHT 49 LEFT 71 ICA PEAK SYSTOLIC VELOCITY (CM/S): RIGHT 124 LEFT 65 The systolic ratio between the right internal to common carotid arteries are elevated 2.5. However, the grayscale images demonstrate only mild plaque at this site. The findings suggest less than 50% stenosis. Antegrade flow is seen in the vertebral arteries. The external carotid arteries are patent. Blood pressures could not be obtained in this patient, IMPRESSION: Mild plaque within the proximal to mid right internal carotid artery with mildly elevated velocity. The findings suggest less than or equal to 50% stenosis. Electronically signed by: Mendez Shanks M.D. 12/17/2016 9:32 AM Dictated Date/Time: 12/17/2016 9:23 AM
--- NOTE | 2016-12-17 12:29 | Progress Note ---
Medicine Progress Note Date & Time of Visit: Dec 17, 2016 at 12:03. Subjective Pt was seen and examined Sitting in bed very comfortable with daughter at bedside Pt said that she feels fine she said that she did ok during PT, except when the therapist tried to make her walk on a straight line she said that she was unsteady she denies any chest pain, palpitation, dizziness and sob Objective Last 8 Hrs Date Time Temp Pulse Resp B/P Pulse Ox O2 Delivery O2 Flow Rate FiO2 12/17/16 08:00 98 Room Air 12/17/16 07:18 36.8 64 16 173/82 98 Room Air Physical Exam: General- no acute distress Head- atraumatic Eyes- PERRL, EOMI ENT- oropharynx clear Neck- supple, no JVD Lungs- No crackles Heart- no murmur Abdomen- normal bowel sounds, soft Extremities- no calf tenderness Neuro- alert, oriented x 3; PERRL, EOMI; no facial palsy; no dysarthria; motor 5 /5 bilaterally, finger to nose intact bilaterally Skin- warm & dry Laboratory Results: Last 24 Hours Test 12/16/16 13:50 12/17/16 04:58 Estimated Average Glucose 126 mg/dl Hemoglobin A1c 6.0 % White Blood Count 6.66 K/uL Red Blood Count 4.97 M/uL Hemoglobin 15.1 g/dL Hematocrit 44.9 % Mean Corpuscular Volume 90.3 fL Mean Corpuscular Hemoglobin 30.4 pg Mean Corpuscular Hemoglobin Concent 33.6 g/dl Platelet Count 184 K/uL Mean Platelet Volume 9.8 fL Neutrophils (%) (Auto) 57.3 % Lymphocytes (%) (Auto) 27.0 % Monocytes (%) (Auto) 8.1 % Eosinophils (%) (Auto) 6.6 % Basophils (%) (Auto) 0.8 % Neutrophils # (Auto) 3.82 K/uL Lymphocytes # (Auto) 1.80 K/uL Monocytes # (Auto) 0.54 K/uL Eosinophils # (Auto) 0.44 K/uL Basophils # (Auto) 0.05 K/uL RDW Standard Deviation 45.7 fL RDW Coefficient of Variation 13.9 % Immature Granulocyte % (Auto) 0.2 % Immature Granulocyte # (Auto) 0.01 K/uL Sodium Level 143 mmol/L Potassium Level 3.9 mmol/L Chloride Level 109 mmol/L Carbon Dioxide Level 24 mmol/L Anion Gap 10.0 mmol/L Blood Urea Nitrogen 17 mg/dl Creatinine 1.10 mg/dl Est Creatinine Clear Calc Drug Dose 41.4 ml/min Estimated GFR () 57.7 Estimated GFR (Non- 49.8 BUN/Creatinine Ratio 15.4 Random Glucose 113 mg/dl Calcium Level 8.1 mg/dl Triglycerides Level 101 mg/dl Cholesterol Level 198 mg/dl HDL Cholesterol 71 mg/dl LDL Cholesterol, Calculated 107 mg/dl VLDL Cholesterol, Calculated 20 mg/dl Cholesterol/HDL Ratio 2.8 Assessment & Plan Left sided facial numbness/ mouth/ upper extremities CT head on admission was negative MRI of the brain showed small acute/subacute infarct lateral right thalamus MRA of the brain showed no significant stenosis, occlusion, or aneurysm within the [place]. Carotid u/s showed Mild plaque within the proximal to mid right internal carotid artery with mildly elevated velocity. The findings suggest less than or equal to 50% stenosis. total chol 198, LDL 107, HDL 71, Trig 198, Hba1c Continue asa, statin, plavix NO Afib noted on tele monitor Neuro consulted recommended: Blood pressure for the first month post hospital discharge 150/90-130/80, and after that blood pressure recommendations 130/80-110/70 Total cholesterol goal 100- 200 and LDL goal less than 100 Encourage cardiovascular exercise at least 3 times a week for 30 minutes. Consider Holter monitor as an outpatient to r/o any episode of Afib can be arranged by PCP Follow up with Neurology in 1 month Continue PT/OT Echo done Normal LV chamber size with mild concentric LVH. * Normal LV systolic function, EF 60-65%. * No segmental left ventricular wall motion abnormalities are noted. * Grade I diastolic dysfunction. * No significant valvular pathology. * The interatrial septum is intact with no evidence for an atrial septal defect. * Injection of contrast documented no interatrial shunt. Hypertensive Resume amlodipine 5mg Will keep BP while in the hospital btw 150/80 to 175/95 Continue monitor BP Acute renal failure Resolved Hyperlipidemia Continue statin therapy. Cough Continue guaifenesin DVT px On heparin subq CODE STATUS FULL CODE Disposition Will discharge home today Consider Holter monitor as an outpatient to r/o any episode of Afib can be arranged by PCP Follow up with Neurology in 1 month Continue PT/OT Encourage cardiovascular exercise at least 3 times a week for 30 minutes. Consultants: neurology Current Inpatient Medications: Current Inpatient Medications Medications (Trade) Dose Ordered Sig/Rohan Route Start Time Stop Time Status Last Admin Dose Admin Miscellaneous (Iv Fluids Completed) 1 ea PRN PRN N/A 12/16/16 06:00 12/16/17 05:59 Heparin Sodium (Porcine) (Heparin Sq 5000 Unit/0.5ml) 5,000 unit Q8 SQ 12/16/16 14:00 01/15/17 13:59 12/17/16 05:51 5,000 UNIT Acetaminophen (Tylenol Tab) 650 mg Q4H PRN PO 12/16/16 06:00 01/15/17 05:59 Nitroglycerin (Nitrostat Tab) 0.4 mg UD PRN SL 12/16/16 06:00 01/15/17 05:59 Miscellaneous Information (Pharmacist Discharge Med Rec Consult) 1 ea UD PRN N/A 12/16/16 06:00 01/15/17 05:59 Aspirin (Ecotrin Tab) 325 mg QAM PO 12/17/16 09:00 01/16/17 08:59 12/17/16 08:03 325 MG Hydromorphone HCl (Dilaudid Inj) 0.5 mg Q3H PRN IV 12/16/16 06:00 12/30/16 05:59 Ondansetron HCl (Zofran Inj) 4 mg Q6H PRN IV 12/16/16 06:00 01/15/17 05:59 Tramadol HCl (Ultram Tab) 25 mg Q6H PRN PO 12/16/16 06:00 01/15/17 05:59 Guaifenesin (Mucinex Contr Rel Tab) 600 mg Q12 PO 12/16/16 09:00 01/15/17 08:59 12/17/16 08:04 600 MG Albuterol/ Ipratropium (Duoneb) 3 ml Q2H PRN INH 12/16/16 06:00 01/15/17 05:59 Loratadine (Claritin Tab) 10 mg DAILY PRN PO 12/16/16 06:00 01/15/17 05:59 Lorazepam (Ativan Tab) 0.5 mg QID PRN PO 12/16/16 06:00 01/15/17 05:59 Clopidogrel Bisulfate (plAVix TAB) 75 mg QAM PO 12/17/16 09:00 01/16/17 08:59 12/17/16 08:05 75 MG Pravastatin Sodium (Pravachol Tab) 40 mg HS PO 12/16/16 21:00 01/15/17 20:59 12/16/16 21:00 40 MG Multivitamins (Multivitamin Tab) 1 tab QAM PO 12/17/16 09:00 01/16/17 08:59 12/17/16 08:04 1 TAB Amlodipine Besylate (Norvasc Tab) 5 mg DAILY PO 12/17/16 09:00 01/16/17 08:59 12/17/16 08:08 5 MG
[2016-12-17] MEDS ORDERED: ASPI81CH2 PO (15:34)
[2016-12-17] MEDS ORDERED: PLV75 PO (15:34)
--- NOTE | 2016-12-17 15:52 | Discharge Instructions ---
Discharge Instructions Admission Reason for Admission: Left Facial Numbness Discharge Discharge Diagnosis / Problem: subacute right thalamic ischemic stroke, Acute Kidney failure, hypertension Discharge Goals Goal(s): Decrease discomfort, Improve function, Improve disease control Activity Recommendations Activity Limitations: resume your previous activity (as tolerated) . Instructions / Follow-Up Instructions / Follow-Up Follow up with Primary care provider Dr. Akhtar (Dr. Rodriguez will not be available , you will see his partner) on Dec 24 @ 9:10am Please follow up with Neurology in 1 month ( the neurology's office will call you for the appointment) Consider Holter monitor as an outpatient to r/o any episode of Afib can be arranged by PCP Monitor Blood pressure Continue PT/OT as an outpatient Encourage cardiovascular exercise at least 3 times a week for 30 minutes. No specific activity restrictions. abnormal TSH, please repeat TSH Starting on Plavix, that can cause bleeding. If you see any blood in your stool or urine or any abnormal bleeding, please notify your physician immediately Current Hospital Diet Patient's current hospital diet: AHA Diet (Heart Healthy) Discharge Diet Recommended Diet: AHA Diet (Heart Healthy) Pending Studies Studies pending at discharge: no Laboratory Results Hemoglobin A1c Test 12/16/16 13:50 Range/Units Estimated Average Glucose 126 mg/dl Hemoglobin A1c 6.0 H 4.5-5.6 % Lipid Panel Test 12/17/16 04:58 Range/Units Triglycerides Level 101 0-150 mg/dl Cholesterol Level 198 0-200 mg/dl HDL Cholesterol 71 mg/dl Cholesterol/HDL Ratio 2.8 LDL Cholesterol, Calculated 107 mg/dl Medical Emergencies . Who to Call and When: Medical Emergencies: If at any time you feel your situation is an emergency, please call 911 immediately. . Non-Emergent Contact Non-Emergency issues call your: Primary Care Provider Call Non-Emergent contact if: you have any medication questions . . "Provider Documentation" section prepared by Franklin Greene. VTE Core Measure Inpt VTE Proph given/why not?: Unfractionated heparin SQ
[2016-12-17] MEDS ORDERED: HydrALAZINE HCL 20 MG/ML VIAL ONE (16:57)
--- NOTE | 2016-12-17 16:58 | Pharmacy Progress Note ---
Pharmacist Stroke Counseling Date of Service Dec 17, 2016. Scope Pharmacy has been consulted to provide medication discharge counseling for this patient admitted with ischemic stroke/hemorrhagic stroke/ transient ischemic attack as per the Pharmacist Discharge Counseling for Stroke Patients Protocol. Medications on Discharge New Medications: Aspirin (Aspirin) 81 Mg Chw 1 TAB PO DAILY for 30 Days, #30 TAB Clopidogrel Bisulfate (Clopidogrel) 75 Mg Tab 75 MG PO QAM for 30 Days, #30 TAB Continued Medications: Amlodipine (Norvasc) 5 Mg Tab 5 MG PO DAILY, TAB Atorvastatin (Lipitor) 10 Mg Tab 10 MG PO DAILY, TAB Calcium Carbonate-Vitamin D W/ (Caltrate 600 Plus) 1 Tab Tab 1 TAB PO DAILY, TAB Cholecalciferol (Vitamin D 1000 Unit) 1,000 Unit Cap 1000 INTER.UNIT PO DAILY, CAP Coenzyme Q10 (Ubidecarenone) (Co Q10) 50 Mg Cap 100 MG PO DAILY, CAP Fish Oil (Altha-3) Oil 1200 MG PO DAILY, OIL Guaifenesin (Robitussin) 100 Mg/5 Ml Mary 20 ML PO Q12 PRN for Cough Ibuprofen (Motrin) 600 Mg Tab 600 MG PO Q6H PRN for Pain, TAB Loratadine (Claritin) 10 Mg Tab 10 MG PO DAILY PRN for ALLERGIC REACTION, TAB Lorazepam (Ativan) 0.5 Mg Tab 0.5-1 MG PO QID PRN for Anxiety, TAB TAKE NO MORE THAN 3/24HRS Multivitamins/Minerals (Mvi With Minerals) Tab 1 TAB PO DAILY, TAB Discontinued Medications: Dextromethorphan-Guaifenesin (Mucinex Dm) 1 Tab Tab 1 TAB PO Q12 PRN for CONGESTION for 10 Days, #20 TAB Ms Chavarria is very familiar with her usual medications. We discussed antiplatelet meds, exercise, nonpharmacologic cough remedies (rather than OTC products.) Cough medicines containing decongestants may have contributed to her stroke risk. Action The above medications, specifically ones for stroke treatment/prophylaxis, have been reviewed in detail with the patient prior to discharge. This includes indication, common adverse reactions, drug interactions, and medication administration. Medication counseling has been employed using the teach-back method to ensure understanding. Outcome The patient has demonstrated understanding of the medications. Please note, they are aware that the pharmacist will call them within 72 hours post-discharge to confirm that the appropriate medications are being taken and answer any further medication related questions the patient might have at that time. Contact information Individual to be contacted: patient Phone number: [phone] Best time to call: anytime-please leave a message if not there Thank you for allowing pharmacy to be involved in the care of this patient. Please call [phone] or [phone] with any additional questions
[2016-12-17] MEDS ORDERED: HydrALAZINE HCL 20 MG/ML VIAL IV. ONE (17:00)
--- NOTE | 2016-12-18 23:10 | Discharge Summary ---
Discharge Summary Admission Date: Dec 17, 2016 at 00:25 Discharge Date: Dec 17, 2016 Discharge Disposition: Home Principal Diagnosis: subacute right thalamic ischemic stroke Secondary Diagnoses/Problems: Acute Kidney failure Hypertension Dyslipidemia Abnormal TSH Cough Procedures: Brain MRI WITHOUT CONTRAST HISTORY: Facial numbness Stroke TECHNIQUE: Multiplanar multisequence MRI of the brain was performed without the use of contrast. COMPARISON STUDY: CT study same date FINDINGS: Small acute infarct lateral aspect right thalamus. Signal characteristics of the cerebellar as well as cerebral hemispheres otherwise are unremarkable. The ventricular system is midline. Minimal chronic small vessel change. IMPRESSION: 1. Small acute/subacute infarct lateral right thalamus. 2. Minimal chronic small vessel change. Electronically signed by: Mark Wu M.D. 12/16/2016 11:40 AM Consultations: neurology Medication Reconciliation New Medications: Aspirin (Aspirin) 81 Mg Chw 1 TAB PO DAILY for 30 Days, #30 TAB Clopidogrel Bisulfate (Clopidogrel) 75 Mg Tab 75 MG PO QAM for 30 Days, #30 TAB Continued Medications: Amlodipine (Norvasc) 5 Mg Tab 5 MG PO DAILY, TAB Atorvastatin (Lipitor) 10 Mg Tab 10 MG PO DAILY, TAB Calcium Carbonate-Vitamin D W/ (Caltrate 600 Plus) 1 Tab Tab 1 TAB PO DAILY, TAB Cholecalciferol (Vitamin D 1000 Unit) 1,000 Unit Cap 1000 INTER.UNIT PO DAILY, CAP Coenzyme Q10 (Ubidecarenone) (Co Q10) 50 Mg Cap 100 MG PO DAILY, CAP Fish Oil (Orr-3) Oil 1200 MG PO DAILY, OIL Guaifenesin (Robitussin) 100 Mg/5 Ml Mary 20 ML PO Q12 PRN for Cough Ibuprofen (Motrin) 600 Mg Tab 600 MG PO Q6H PRN for Pain, TAB Loratadine (Claritin) 10 Mg Tab 10 MG PO DAILY PRN for ALLERGIC REACTION, TAB Lorazepam (Ativan) 0.5 Mg Tab 0.5-1 MG PO QID PRN for Anxiety, TAB TAKE NO MORE THAN 3/24HRS Multivitamins/Minerals (Mvi With Minerals) Tab 1 TAB PO DAILY, TAB Discontinued Medications: Dextromethorphan-Guaifenesin (Mucinex Dm) 1 Tab Tab 1 TAB PO Q12 PRN for CONGESTION for 10 Days, #20 TAB Admission Information HPI (per Admitting provider): CHIEF COMPLAINT: Numbness on the left side of the face around the mouth, worsening numbness of the upper extremities. HISTORY OF PRESENT ILLNESS: Medical history significant for hypertension, hyperlipidemia, anxiety. Patient suffering from nasal congestion, dry cough symptoms the last few days. No fever, no chills. Taking [id number]-myyfotc decongestants/cough meds. Yesterday the patient noted increased numbness on the left side of the face and around the mouth, worsening of chronic numbness on both hands, had trouble writing. (Patient is left handed.) No chest pain, usual shortness of breath "because I don't exercise." No fevers, no headaches. Physical Exam (per Admitting): VITAL SIGNS: Blood pressure was noted to be 136/81 later SBP 170s, pulse rate 68, respiratory rate 18, T 37, O2 sats 94 on room air. GENERAL: Noted to becomfortable, slightly anxious, no respiratorydistress. SKIN: Normal color. HEENT: [place] palpebral conjunctivae, dry mucosa. NECK: No JVD. supple CHEST: Clear to auscultation. HEART: Regular rate and rhythm. ABDOMEN: Soft. EXTREMITIES: no edema, no tenderness noted. NEUROLOGIC: no gross focality, gait and stance not assessed. Hospital Course Left sided facial numbness/ mouth/ upper extremities CT head on admission was negative MRI of the brain showed small acute/subacute infarct lateral right thalamus MRA of the brain showed no significant stenosis, occlusion, or aneurysm within the [place]. Carotid u/s showed Mild plaque within the proximal to mid right internal carotid artery with mildly elevated velocity. The findings suggest less than or equal to 50% stenosis. total chol 198, LDL 107, HDL 71, Trig 198, Hba1c Continue asa, statin, plavix NO Afib noted on tele monitor Neuro consulted recommended: Blood pressure for the first month post hospital discharge 150/90-130/80, and after that blood pressure recommendations 130/80-110/70 Total cholesterol goal 100- 200 and LDL goal less than 100 Encourage cardiovascular exercise at least 3 times a week for 30 minutes. Consider Holter monitor as an outpatient to r/o any episode of Afib can be arranged by PCP Follow up with Neurology in 1 month Continue PT/OT Echo done Normal LV chamber size with mild concentric LVH. * Normal LV systolic function, EF 60-65%. * No segmental left ventricular wall motion abnormalities are noted. * Grade I diastolic dysfunction. * No significant valvular pathology. * The interatrial septum is intact with no evidence for an atrial septal defect. * Injection of contrast documented no interatrial shunt. Hypertensive Resume amlodipine 5mg Will keep BP while in the hospital btw 150/80 to 175/95 Continue monitor BP Acute renal failure Resolved Hyperlipidemia Continue statin therapy. Cough Continue guaifenesin Abnormal TSH asymptomatic Repeat TSH in a few weeks DVT px On heparin subq CODE STATUS FULL CODE Disposition Will discharge home today Consider Holter monitor as an outpatient to r/o any episode of Afib can be arranged by PCP Follow up with Neurology in 1 month Continue PT/OT Encourage cardiovascular exercise at least 3 times a week for 30 minutes. Total time spent on discharge = 35 minutes This includes examination of the patient, discharge planning, medication reconciliation, and communication with other providers. Discharge Instructions Discharge Instructions Admission Reason for Admission: Left Facial Numbness Discharge Discharge Diagnosis / Problem: subacute right thalamic ischemic stroke, Acute Kidney failure, hypertension Discharge Goals Goal(s): Decrease discomfort, Improve function, Improve disease control Activity Recommendations Activity Limitations: resume your previous activity (as tolerated) . Instructions / Follow-Up Instructions / Follow-Up Follow up with Primary care provider Dr. Akhtar (Dr. Rodriguez will not be available , you will see his partner) on Dec 24 @ 9:10am Please follow up with Neurology in 1 month ( the neurology's office will call you for the appointment) Consider Holter monitor as an outpatient to r/o any episode of Afib can be arranged by PCP Monitor Blood pressure Continue PT/OT as an outpatient Encourage cardiovascular exercise at least 3 times a week for 30 minutes. No specific activity restrictions. abnormal TSH, please repeat TSH Starting on Plavix, that can cause bleeding. If you see any blood in your stool or urine or any abnormal bleeding, please notify your physician immediately Current Hospital Diet Patient's current hospital diet: AHA Diet (Heart Healthy) Discharge Diet Recommended Diet: AHA Diet (Heart Healthy) Pending Studies Studies pending at discharge: no Laboratory Results Hemoglobin A1c Test 12/16/16 13:50 Range/Units Estimated Average Glucose 126 mg/dl Hemoglobin A1c 6.0 H 4.5-5.6 % Lipid Panel Test 12/17/16 04:58 Range/Units Triglycerides Level 101 0-150 mg/dl Cholesterol Level 198 0-200 mg/dl HDL Cholesterol 71 mg/dl Cholesterol/HDL Ratio 2.8 LDL Cholesterol, Calculated 107 mg/dl Medical Emergencies . Who to Call and When: Medical Emergencies: If at any time you feel your situation is an emergency, please call 911 immediately. . Non-Emergent Contact Non-Emergency issues call your: Primary Care Provider Call Non-Emergent contact if: you have any medication questions . . "Provider Documentation" section prepared by Franklin Greene. VTE Core Measure Inpt VTE Proph given/why not?: Unfractionated heparin SQ <Electronically signed by Franklin Greene M.D.> Signed: 12/18/16 0613 Signed: The status of this report is Signed * If report status is Draft, the document has not been finalized by the responsible provider. Additional Copies To Tristen Rodriguez III, M.D.
--- NOTE | 2016-12-21 14:43 | Pharmacy Progress Note ---
Pharmacist Post D/C Phone Note Date of phone call: Dec 21, 2016. Individual with whom pharmacist spoke to: Patient The following questions were reviewed during the phone call with responses listed below each: Can you tell me the medications that you are currently taking as well as when and how you take each medication? - taking pravastatin 40 mg PO qHS instead of Lipitor When have you missed any doses of your medications? - no What side effects are you having from your medications? - still bruised from the hospital What questions do you have about your medications? - no What problems are you having obtaining your medications? - no When is your next appointment with your primary care doctor? - Dr Dunaway (typical PCP not available) on Saturday in the evening, neurologist in one month Additional comments: - P/T every Saturday/, provided additional information regarding where his stroke As per the Pharmacist Discharge Counseling for Stroke Patients Protocol, this phone call has been completed within 72 hours of discharge. Thank you for allowing us to be involved in the care of this patient.
== END 2016-12-17 18:32 | disposition home or self-care (01) | DRG 65 ==
LOC: ENRESERVDT → ENRESERVTM → C.EDB 12-16 → C.2T 12-16 05:23 → OBSVTOIN 12-17 00:25
PROVIDERS: ADMIT Internal Medicine; ATTEND Internal Medicine
DX: I63.8 Other cerebral infarction (principal); N17.9 Acute kidney failure, unspecified; N18.3 Chronic kidney disease, stage 3 (moderate); R20.0 Anesthesia of skin; I12.9 Hypertensive chronic kidney disease with stage 1 through stage 4 chronic kidney disease, or unspecified chronic kidney disease; E11.21 Type 2 diabetes mellitus with diabetic nephropathy; E78.5 Hyperlipidemia, unspecified; F41.9 Anxiety disorder, unspecified; Z82.3 Family history of stroke; I16.0 Hypertensive urgency; J06.9 Acute upper respiratory infection, unspecified; R94.6 Abnormal results of thyroid function studies

== ENCOUNTER → 2017-01-14 | Outpatient (CLI) | payer OTHER ==
[~2017-01-14] MED LIST changes: -ACYC-251 PO; +AMLO-110 PO; -AMLO2.5T PO; +ASPI81CH2 PO; +ATOR10TA88 PO; +CLR10 PO; +COEN1CAP28 PO; -DSWCR15 TOP; +IBUP600T44 PO; +PLV75 PO; +RBTUDL5 PO
--- NOTE | 2017-01-15 08:36 | MAMMOGRAPHY REPORT ---
BILATERAL DIGITAL SCREENING MAMMOGRAM TOMOSYNTHESIS WITH CAD: 01/14/2017 CLINICAL HISTORY: Routine screening examination. TECHNIQUE: Breast tomosynthesis in addition to standard 2D mammography was performed. Current study was also evaluated with a Computer Aided Detection (CAD) system. COMPARISON: Comparison is made to exams dated: 01/02/2016 mammogram, 12/29/2013 mammogram, 12/30/2014 mammogram, 12/11/2012 mammogram, 12/10/2011 mammogram, and 11/28/2009 mammogram - [facility]. BREAST COMPOSITION: There are scattered areas of fibroglandular density in both breasts. FINDINGS: There is stable nodularity of the left breast. Scattered benign-appearing calcifications and round microcalcifications are stable in the breasts. There are mild to moderate vascular calcif ications. Stable asymmetry in the lateral left breast. No new suspicious mass, architectural disto rtion or cluster of microcalcifications is seen. IMPRESSION: ACR BI-RADS CATEGORY 1: NEGATIVE There is no mammographic evidence of malignancy. A 1 year screening mammogram is recommended. The p atient will receive written notification of the results. Approximately 10% of breast cancers are not detected with mammography. A negative mammographic repor t should not delay biopsy if a clinically suggestive mass is present. Cinthya Flowers M.D. ay/:01/14/2017 20:51:34 [place]: Ene ANDERSON(Aiden)(Brittany), [facility] letter sent: Normal 1/2 BI-RADS Code: ACR BI-RADS Category 1: Negative
== END | disposition home or self-care (01) ==
LOC: C.MAMM 10:32
PROVIDERS: ATTEND Obstetrics & Gynecology
DX: Z12.31 Encounter for screening mammogram for malignant neoplasm of breast (principal)

== ENCOUNTER → 2017-01-21 | Outpatient (CLI) | payer OTHER ==
[~2017-01-21] MED LIST changes: -ASPI81CH2 PO
[2017-01-21 09:47] LABS: HEMATOCRIT 46.8 % (37-47); MEAN CELL VOLUME 90.3 fL (80-100); MEAN CORPUSCULAR HEMOGLOBIN 30.9 pg (25-34); MEAN CORPUSCULAR HGB CONC 34.2 g/dl (32-36); MEAN PLATELET VOLUME 9.6 fL (7.4-10.4); PLATELET COUNT 182 K/uL (130-400); RED BLOOD COUNT 5.18 M/uL (4.2-5.4); WHITE BLOOD COUNT 5.05 K/uL (4.8-10.8)
[2017-01-21 10:30] LABS: BLOOD UREA NITROGEN 18 mg/dl (7-18); BUN/CREATININE RATIO 16.4 (10-20); CALCIUM 8.9 mg/dl (8.5-10.1); CARBON DIOXIDE 24 mmol/L (21-32); CHLORIDE 110 mmol/L (98-107); GLUCOSE 98 mg/dl (70-99); POTASSIUM 3.8 mmol/L (3.5-5.1); SODIUM 144 mmol/L (136-145)
[2017-01-21 10:31] LABS: PHOSPHORUS 3.1 mg/dl (2.5-4.9)
[2017-01-21 10:37] LABS: ESTIMATED AVERAGE GLUCOSE 120 mg/dl; HA1C FLAG Normal (Normal)
[2017-01-21 10:40] LABS: THYROID STIMULATING HORMONE 2.32 uIu/ml (0.300-4.500)
[2017-01-23 11:19] LABS: ALBUMIN 4.1 G/DL (3.8-4.8); GAMMA GLOBULIN 0.9 G/DL (0.8-1.7); TOTAL PROTEIN 6.7 G/DL (6.2-8.3)
--- NOTE | 2017-01-28 06:50 | CODING QUERY MEDICAL NECESSITY ---
CQSUPPORTING DIAGNOSIS NEEDED A supporting diagnosis is required for the test/procedure performed on this patient in order for us to be reimbursed by the patient's insurance. Please provide a supporting diagnosis for the following test/procedure listed below next to the test name along with your signature. *If there is no additional diagnosis for this patient that would support the following test/procedure please document that below next to the test/procedure. Test(s)/Procedure(s) that require a supporting diagnosis: DOS 01/21/17 GLYCATED HEMOGLOBIN TEST SENT QUERY BACK WITH SIGNATURE BUT FORGOT TO ADD DIAGNOSIS THANKS Provider Signature: Date: Thank you Nubia Gutierrez Health Information Management Once completed, please kindly fax back to [phone] For questions please call [phone]
== END | disposition home or self-care (01) ==
LOC: C.LAB 09:00
PROVIDERS: ATTEND Psychiatry & Neurology Neurology
DX: N18.3 Chronic kidney disease, stage 3 (moderate) (principal); R41.3 Other amnesia; R20.0 Anesthesia of skin; I63.9 Cerebral infarction, unspecified; R73.03 Prediabetes

== ENCOUNTER → 2017-05-28 | Outpatient (CLI) | payer OTHER ==
--- NOTE | 2017-05-28 10:16 | DIAGNOSTIC IMAGING REPORT ---
C-SPINE ROUTINE 4 OR 5 VIEWS HISTORY: 5 CERVICALGIA M54.2, PAIN COMPARISON: None. FINDINGS: The cervical spine is visualized from C1 through the superior endplate of T1. There is no fracture. No subluxation. Considerable disc change on a degenerative basis throughout the entire cervical region. Prevertebral soft tissues and the atlantodens interval are intact. No evidence for compression deformity. Mild osteophytic narrowing of the bulk of the neuroforamina bilaterally IMPRESSION: Considerable degenerative disc change/osteophytic reaction throughout the entire cervical region. No acute process. The above report was generated using voice recognition software. It may contain grammatical, syntax or spelling errors. Electronically signed by: Mark Wu M.D. 05/28/2017 10:15 AM Dictated Date/Time: 05/28/2017 10:14 AM
== END | disposition home or self-care (01) ==
LOC: C.RAD 09:42
PROVIDERS: ATTEND Family Medicine
DX: M54.2 Cervicalgia (principal)

== ENCOUNTER → 2017-05-28 | Outpatient (CLI) | payer OTHER | END | disposition home or self-care (01) | LOC: C.MAMM 08:47 | PROVIDERS: ATTEND Family Medicine | DX: M85.88 Other specified disorders of bone density and structure, other site (principal); M85.851 Other specified disorders of bone density and structure, right thigh; M85.852 Other specified disorders of bone density and structure, left thigh; M54.2 Cervicalgia ==

== ENCOUNTER → 2017-07-25 | Outpatient (CLI) | payer OTHER ==
[2017-07-25 09:35] LABS: BASO % 0.6 %; BASO ABS # 0.03 K/uL (0-0.2); COMPLETE YES; EOS % 5.3 %; HEMATOCRIT 46.8 % (37-47); IG% 0.2 %; LYMPH % 23.4 %; LYMPH ABS # 1.27 K/uL (1.2-3.4); MEAN CELL VOLUME 93.2 fL (80-100); MEAN CORPUSCULAR HEMOGLOBIN 30.5 pg (25-34); MEAN CORPUSCULAR HGB CONC 32.7 g/dl (32-36); MEAN PLATELET VOLUME 9.8 fL (7.4-10.4); MONO % 9.6 %; NEUT % 60.9 %; PLATELET COUNT 196 K/uL (130-400); RED BLOOD COUNT 5.02 M/uL (4.2-5.4); WHITE BLOOD COUNT 5.43 K/uL (4.8-10.8)
[2017-07-25 09:55] LABS: ALT/SGPT 30 U/L (12-78); BLOOD UREA NITROGEN 28 mg/dl (7-18); BUN/CREATININE RATIO 25.5 (10-20); CALCIUM 8.8 mg/dl (8.5-10.1); CARBON DIOXIDE 27 mmol/L (21-32); CHLORIDE 108 mmol/L (98-107); CHOLESTEROL 180 mg/dl (0-200); GLUCOSE 92 mg/dl (70-99); POTASSIUM 3.7 mmol/L (3.5-5.1); SODIUM 141 mmol/L (136-145)
[2017-07-25 09:58] LABS: ALB/GLOB RATIO 1.1 (0.9-2); ALKALINE PHOSPHATASE 84 U/L (45-117); AST/SGOT 21 U/L (15-37); CHOLESTEROL/HDL RATIO 2.8; HDL CHOLESTEROL 64 mg/dl; LDL CHOLESTEROL CALCULATED 91 mg/dl; PHOSPHORUS 3.3 mg/dl (2.5-4.9); TRIGLYCERIDES 125 mg/dl (0-150); VERY LOW DENSITY LIPOPROT CALC 25 mg/dl
== END | disposition home or self-care (01) ==
LOC: C.LAB 08:09
PROVIDERS: ATTEND Family Medicine
DX: N18.3 Chronic kidney disease, stage 3 (moderate) (principal); Z86.73 Personal history of transient ischemic attack (TIA), and cerebral infarction without residual deficits

== ENCOUNTER → 2017-10-22 | Outpatient (CLI) | payer OTHER ==
[~2017-10-22] MED LIST changes: +ATOR10TA82 PO; -ATOR10TA88 PO
[2017-10-22 10:43] LABS: ALT/SGPT 30 U/L (12-78); AST/SGOT 19 U/L (15-37); BLOOD UREA NITROGEN 18 mg/dl (7-18); BUN/CREATININE RATIO 16.8 (10-20); CALCIUM 8.7 mg/dl (8.5-10.1); CARBON DIOXIDE 28 mmol/L (21-32); CHLORIDE 106 mmol/L (98-107); CREATININE 1.06 mg/dl (0.60-1.20); GLUCOSE 89 mg/dl (70-99); POTASSIUM 3.8 mmol/L (3.5-5.1); SODIUM 138 mmol/L (136-145)
[2017-10-22 10:48] LABS: ALB/GLOB RATIO 1.1 (0.9-2); ALKALINE PHOSPHATASE 79 U/L (45-117); CHOLESTEROL 127 mg/dl (0-200); CHOLESTEROL/HDL RATIO 1.8; HDL CHOLESTEROL 70 mg/dl; LDL CHOLESTEROL CALCULATED 40 mg/dl; TRIGLYCERIDES 84 mg/dl (0-150); VERY LOW DENSITY LIPOPROT CALC 17 mg/dl
[2017-10-22 11:36] LABS: RATIO 35.8 mcg/mg (0-30.0)
== END | disposition home or self-care (01) ==
LOC: C.LAB 09:25
PROVIDERS: ATTEND Family Medicine
DX: I67.2 Cerebral atherosclerosis (principal); Z86.73 Personal history of transient ischemic attack (TIA), and cerebral infarction without residual deficits; E78.5 Hyperlipidemia, unspecified; N18.3 Chronic kidney disease, stage 3 (moderate)

== ENCOUNTER → 2018-01-20 | Outpatient (CLI) | payer OTHER ==
--- NOTE | 2018-01-20 15:18 | MAMMOGRAPHY REPORT ---
BILATERAL DIGITAL SCREENING MAMMOGRAM TOMOSYNTHESIS WITH CAD: 01/20/2018 CLINICAL HISTORY: Routine screening. TECHNIQUE: Breast tomosynthesis in addition to standard 2D mammography was performed. Current study was also evaluated with a Computer Aided Detection (CAD) system. COMPARISON: Comparison is made to exams dated: 01/14/2017 mammogram, 01/11/2016 mammogram, 01/02/2016 yasha mogram, 12/30/2014 mammogram, 12/29/2013 mammogram, and 12/11/2012 mammogram - [facility]. BREAST COMPOSITION: There are scattered areas of fibroglandular density in both breasts. FINDINGS: There is stable asymmetry in the lateral left breast. Mild vascular calcifications and sca ttered benign rounded calcifications bilaterally. No suspicious mass, architectural distortion or cl uster of suspicious microcalcifications is seen. IMPRESSION: ACR BI-RADS CATEGORY 1: NEGATIVE There is no mammographic evidence of malignancy. A 1 year screening mammogram is recommended. The pa tient will receive written notification of the results. Approximately 10% of breast cancers are not detected with mammography. A negative mammographic report should not delay biopsy if a clinically suggestive mass is present. Cinthya Flowers M.D. ay/:01/20/2018 12:16:17 [employer]: Nelson ANDERSON(R)(M), [facility] letter sent: Normal 1/2 BI-RADS Code: ACR BI-RADS Category 1: Negative
== END | disposition home or self-care (01) ==
LOC: C.MAMM 10:24
PROVIDERS: ATTEND Obstetrics & Gynecology
DX: Z12.31 Encounter for screening mammogram for malignant neoplasm of breast (principal)

== ENCOUNTER → 2018-06-26 | Outpatient (CLI) | payer OTHER ==
[~2018-06-26] MED LIST changes: -AMLO-110 PO; +AMLO5TAB3 PO
--- NOTE | 2018-06-26 13:01 | DIAGNOSTIC IMAGING REPORT ---
L FINGER(S) MIN 2 VIEWS ROUTINE CLINICAL HISTORY: 73 years-old Female presenting with INJURY OF FINGER OF LEFT HAND. TECHNIQUE: Frontal, oblique, and lateral views of the left fifth finger were obtained. COMPARISON: None. FINDINGS: Joint space loss and osteophytosis noted at the distal interphalangeal joint. No acute fracture or malalignment. No advanced degenerative change. Nodular soft tissue thickening over the proximal interphalangeal joint, likely [place] node. Osteopenia. IMPRESSION: 1. No acute osseous injury. 2. Degenerative changes of the DIP joint and suspected [place] node at the DIP. Electronically signed by: Smooth Lorenzo M.D. 06/26/2018 1:00 PM Dictated Date/Time: 06/26/2018 12:47 PM
== END | disposition home or self-care (01) ==
LOC: C.RAD 12:19
PROVIDERS: ATTEND Physician Assistant
DX: S69.92XA Unspecified injury of left wrist, hand and finger(s), initial encounter (principal); X58.XXXA Exposure to other specified factors, initial encounter; M19.042 Primary osteoarthritis, left hand